=== PATIENT | female | born 1980 | race Caucasian/White ===

== ENCOUNTER 2017-05-08 18:37 | Emergency (ER) | payer OTHER, BC ==
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
[2017-05-08 19:19] LABS: CHLORIDE,CL 104 mmol/L (101-111); SODIUM,NA 141 mmol/L (135-145)
[2017-05-08] MEDS ORDERED: Ibuprofen 600 MG Tab PO ONE (20:13)
[2017-05-08 20:16] VITALS: BP 101/69
[2017-05-08] MEDS ORDERED: Ondansetron 4 MG Tab.DIS PO ONE ×2 (20:16→20:52)
[2017-05-08] MEDS ORDERED: Cyclobenzaprine 10 MG Tab PO ONE (20:21)
[2017-05-08] MEDS ORDERED: Acetaminophen/oxyCODONE 325-5 MG Tab PO ONE (20:21)
[2017-05-08] MEDS ORDERED: Acetaminophen/oxyCODONE 325-5 MG Tab ONE (20:21)
[2017-05-08] MEDS ORDERED: Cyclobenzaprine 10 MG Tab ONE (20:21)
[2017-05-08] MEDS ORDERED: Ondansetron 4 MG Tab.DIS ONE (20:52)
== END 2017-05-08 20:58 | disposition home or self-care (01) ==
LOC: DL.ED 18:37
DX: S16.1XXA Strain of muscle, fascia and tendon at neck level, initial encounter (principal); M25.511 Pain in right shoulder; V43.62XA Car passenger injured in collision with other type car in traffic accident, initial encounter
CPT/HCPCS: 36415; 72125; 72128; 73030; 80053; 81001; 84703; 85025; 99285; A9270